=== PATIENT | female | born 1935 | race Two or more races ===

== ENCOUNTER 2023-01-24 14:49 | Emergency (ER) | payer OTHER ==
[~2023-01-24] VITALS: Ht 157.5 cm; Wt 63.5 kg
[2023-01-24] MEDS ORDERED: MEDI-MECLIZINE25 MG PO (19:11)
== END 2023-01-24 19:33 | disposition home or self-care (01) ==
LOC: ER 14:49
DX: S70.02XA Contusion of left hip, initial encounter (principal); W18.30XA Fall on same level, unspecified, initial encounter; Y93.9 Activity, unspecified; Y92.9 Unspecified place or not applicable; Y99.9 Unspecified external cause status